=== PATIENT | male | born 1995 | race Caucasian/White ===

== ENCOUNTER 2019-12-06 08:00 | Outpatient (CLI) | payer OTHER ==
--- NOTE | 2019-12-06 14:49 | XRAY Report ---
PROCEDURE: Wrist 3 View LT INDICATIONS: UNSPECIFIED SPRAIN OF LEFT WRIST TECHNIQUE: 3 views of the wrist were acquired. COMPARISON: None FINDINGS: Bones: No fractures or dislocations. No suspicious bony lesions. Incidentally noted ulnar minus taylor iance. Soft tissues: No suspicious soft tissue calcifications. IMPRESSION: Overall, unremarkable examination. If the patient's pain or other symptoms persist, consider further evaluation with MRI. Reviewed by: Daniel Lara MD on 12/06/2019 2:48 PM PDT Approved by: Daniel Lara MD on 12/06/2019 2:48 PM PDT Station ID: [id number]
== END 2019-12-06 23:59 | disposition home or self-care (01) ==
LOC: DI.S 08:00
PROVIDERS: ATTEND Physician Assistant
DX: S63.502A Unspecified sprain of left wrist, initial encounter (principal)

== ENCOUNTER 2020-10-14 13:56 | Outpatient (CLI) | payer BC ==
--- NOTE | 2020-10-14 14:44 | XRAY Report ---
PROCEDURE: Ribs 2 View RT INDICATIONS: R RIB PX POST FALL TECHNIQUE: 3 views of the right ribs were acquired. COMPARISON: None FINDINGS: Surgical changes and devices: None. Bones and chest wall: No fractures or dislocations. No suspicious bony lesions. Overlying soft tis sues appear unremarkable. Lungs and pleura: The visualized lung appears clear. No pleural effusions or pneumothorax are visib le. IMPRESSION: No visualized acute fracture or dislocation. However, occult injury cannot be excluded. Recommend mike rt interval imaging follow-up in 7-10 days as clinically indicated for additional evaluation. Reviewed by: Angela Cueva MD on 10/14/2020 2:43 PM PDT Approved by: Angela Cueva MD on 10/14/2020 2:43 PM PDT Station ID: [id number]
== END 2020-10-14 23:59 | disposition home or self-care (01) ==
LOC: DI.N 13:56
PROVIDERS: ATTEND Physician Assistant Medical
DX: S20.211A Contusion of right front wall of thorax, initial encounter (principal)

== ENCOUNTER 2021-03-30 08:00 | Outpatient (CLI) | payer BC, MEDICAID | END 2021-03-30 23:59 | disposition home or self-care (01) | LOC: LAB.N 08:00 | PROVIDERS: ATTEND Family Medicine | DX: R50.9 Fever, unspecified (principal); Z20.822 Contact with and (suspected) exposure to COVID-19 ==

== ENCOUNTER 2021-04-26 08:00 | Outpatient (CLI) | payer MEDICAID | END 2021-04-26 23:59 | disposition home or self-care (01) | LOC: LAB.N 08:00 | PROVIDERS: ATTEND Nurse Practitioner | DX: J35.1 Hypertrophy of tonsils (principal) | CPT/HCPCS: 87070 ==

== ENCOUNTER 2021-04-26 12:33 | Emergency (ER) | payer MEDICAID ==
[2021-04-26 12:42] VITALS: BP 169/91
== END 2021-04-26 14:40 | disposition left against medical advice (07) ==
LOC: ED 12:33
DX: Z53.21 Procedure and treatment not carried out due to patient leaving prior to being seen by health care provider (principal)
CPT/HCPCS: 87070

== ENCOUNTER 2021-05-08 08:00 | Outpatient (CLI) | payer BC, OTHER ==
--- NOTE | 2021-05-08 12:01 | XRAY Report ---
PROCEDURE: Foot 3 View LT INDICATIONS: CRUSHING INJURY OF LEFT FOOT TECHNIQUE: 3 views of the foot were acquired. COMPARISON: None FINDINGS: Bones: No dano displaced fractures or dislocations. No suspicious bony lesions. Note is made of a partially fused os supratalarae. Soft tissues: No tibiotalar joint effusion. Achilles tendon appears normal. IMPRESSION: No displaced fracture can be seen by plain film. Near the site of clinical concern, there is a partially fused os supratalarae. Reviewed by: Oumar Aaron MD on 05/08/2021 10:59 AM JILLIAN Approved by: Oumar Aaron MD on 05/08/2021 10:59 AM JILLIAN Station ID: [id number]
== END 2021-05-08 23:59 ==
LOC: DI.N 08:00
PROVIDERS: ATTEND Nurse Practitioner
DX: S97.82XA Crushing injury of left foot, initial encounter (principal)

== ENCOUNTER 2021-05-14 13:45 | Outpatient (CLI) | payer BC, OTHER ==
--- NOTE | 2021-05-14 14:13 | XRAY Report ---
PROCEDURE: Foot 3 View LT INDICATIONS: LEFT FOOT PAIN TECHNIQUE: 3 views of the foot were acquired. COMPARISON: May 08, 2021. FINDINGS: FINDINGS: BONES: No acute, displaced fracture or dislocation. Prominent osteophytosis versus an accessory ossic le projecting over the talonavicular articulation. SOFT TISSUES: No focal abnormality. IMPRESSION: 1.No acute osseous abnormality. Reviewed by: Federico Davenport MD on 05/14/2021 2:11 PM PDT Approved by: Federico Davenport MD on 05/14/2021 2:11 PM PDT Station ID: [id number]
== END 2021-05-14 23:59 | disposition home or self-care (01) ==
LOC: DI.WOS 13:45
PROVIDERS: ATTEND Physician Assistant
DX: S97.82XA Crushing injury of left foot, initial encounter (principal)

== ENCOUNTER 2022-01-27 15:29 | Outpatient (CLI) | payer MEDICAID ==
[2022-01-27 16:11] VITALS: BP 130/80
--- NOTE | 2022-01-27 16:11 | SLEEP CARE CONSULTATION ---
Information from patient questionnaire entered by Katya Santiago MA. I have reviewed and concur with the information entered by Katya Santiago MA. This document represents the service I personally performed and the decisions made by me, Jennei Brizuela ARNP. History of Present Illness Service Date and Time: 01/27/2022 1529 Reason for Visit: New patient Chief Complaint: reports: Insomnia, Unrefreshed sleep, Snoring, Excessive daytime sleepiness, Observed pauses in breathing, Fatigue, Frequent awakenings at night Date of Onset: unknown Usual bedtime: ever changing, cannot fall asleep until body is very tired Time it takes to fall asleep: 10min to 3 hrs Snores at night: Yes Observed to quit breathing while asleep: Yes Sleeps alone due to snoring: No Number of times waking at night: 2-3 times Reasons for waking at night: reports: Snoring, Pain, Bathroom, Other (unknown reason; extremely dehydrated from sleeping with mouth open). denies: Choking, Gasping for air Toss, Turn, or Twitch while sleeping: Yes Recalls having dreams: No (rarely) Usually gets out of bed at: changes all the time Feels refreshed in the morning: No Morning headache: Yes (1 time a week) Sleepy or fatigued during the day: Yes Ever fallen asleep while driving: No Takes day naps: Yes (daily when working; 1-2 times wk right now) Dreams during day naps: Yes Prior sleep studies: No Additional HPI information: I had the pleasure of seeing PAYAM BOCANEGRA today regarding the possibility of him having a sleep disorder. His current complaints are excessive daytime sleepiness, fatigue, frequent night awakenings, observed pauses in breathing, snoring and unrefreshed sleep. His biggest concern is his snoring that he has been told he snores loudly. He does not feel he sleeps well and states he lives in a "waking haze". He states he is not employed right now but when working he could not sleep more than 3-4 hours. He has been getting more sleep lately, 10 PM to 5 AM. He states he can only breath through his mouth when sleeping. He will wake up with very dry mouth and lips. He has been using strips on his nose which his girlfriend has said has improved his snoring. He feels that he breathes easier when he uses the nasal strips at night. He will wear them during the day too. 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 Patient is Single and lives in . Have you smoked in the past 12 months: No (smoked marijuana but stopped couple weeks ago) Alcohol use: Yes Alcohol amount and frequency: once a month Caffeine use: Yes Caffeine amount and frequency: 2-3 energy drinks a day Family History Family history of sleep disordered breathing: Yes Family Hx Sleep Apnea: Mother: Snoring, Sleep apnea - Treated Allergies and Home Medications Drug allergies reviewed: Yes (NKDA) Home medication list reviewed: Yes (no daily medications) Review of Systems Weight gain over past 5 years: 100 Cardiovascular: denies: high blood pressure Respiratory: reports: shortness of breath Gastrointestinal: denies: heartburn Urinary: reports: frequency Neurological: denies: headaches Psychiatric: reports: anxiety, depression, mood disorder (undiagnosed) Ear/Nose/Throat: reports: nasal congestion, sinus problems, dry mouth/throat, wisdom teeth removed (1/2 removed). denies: tonsillectomy Musculoskeletal: reports: joint pain, neck pain, other (hypermobility) Immunologic: denies: allergies to food or environment Physical Exam Vital signs obtained and entered by: KATYA Ibarra Blood Pressure: 130/80 Cuff size: long Heart Rate: 103 O2 Saturation: 96 Height: 6 ft 6 in Weight: 320 lb Body Mass Index: 36.9 BMI Classification: Obese Neck circumference: 17 Nostrils: patent to airflow (reduced flow on left) Mouth and throat: narrow oropharynx Soft palate: long Hard palate: normal Uvula: normal Uvula visualization: 50% Mallampati Class II Tongue: enlarged in size with teeth marie on lateral edges Tonsils: 1+ Neck: normal w/o lymphadenopathy or thyromegaly Heart: regular rate and rhythm Lungs: clear bilaterally Impression and Plan 1. Suspected Obstructive Sleep Apnea-Hypopnea Syndrome, as suggested by a history of loud and irregular snoring, observed cessation of breath while asleep, morning headache, frequent awakening during the night, unrefreshed sleep, cognitive impairment, and excessive daytime sleepiness. Narrow oropharynx and obesity are common predisposing factors for obstructive sleep apnea-hypopnea syndrome. I recommend proceeding to polysomnography to confirm the diagnosis and to assess severity. If the patient has significant sleep disordered breathing, a manual CPAP titration study will also be performed to find the optimal treatment pressure. I informed the patient of what the sleep studies involve and after some discussion, obtained agreement to proceed. The pathophysiology of obstructive sleep apnea-hypopnea syndrome was discussed with the patient and health risks of cardiovascular and cerebrovascular disease if not treated. Risks of drowsy driving discussed in detail and patient advised to avoid long distance driving and to pack puller at the first sign of drowsiness. Patient agreed to plan. * Schedule polysomnography * Avoid long distance driving or driving when feeling sleepy. * Avoid alcohol, sedative and muscle relaxant around bedtime. * Attempt to lose weight. * Review instructions provided by trained office staff on how to prepare for the sleep study. * Return for follow-up after sleep study completed. Counseling Topics: Weight loss health impact Visit Type: In Office Time Spent with Patient (minutes): 33 Provider Statement: I spent 100% of the Face to Face Visit with the patient with greater than 50% spent counseling the patient and coordination of care.
== END 2022-01-27 15:30 | disposition home or self-care (01) ==
LOC: SC 15:29
PROVIDERS: ATTEND Nurse Practitioner Family
DX: G47.10 Hypersomnia, unspecified (principal); R53.83 Other fatigue; G47.8 Other sleep disorders; R51.9 Headache, unspecified; R06.83 Snoring; R06.81 Apnea, not elsewhere classified; E66.9 Obesity, unspecified; Z68.36 Body mass index [BMI] 36.0-36.9, adult
CPT/HCPCS: 99203; 99212

== ENCOUNTER 2022-04-18 19:28 | Outpatient (CLI) | payer MEDICAID | END 2022-04-18 19:29 | disposition home or self-care (01) | LOC: SC 19:28 | PROVIDERS: ATTEND Nurse Practitioner Family | DX: G47.10 Hypersomnia, unspecified (principal); R53.83 Other fatigue; G47.8 Other sleep disorders; R51.9 Headache, unspecified; E66.9 Obesity, unspecified; R06.83 Snoring; R06.81 Apnea, not elsewhere classified; Z68.37 Body mass index [BMI] 37.0-37.9, adult | CPT/HCPCS: 95810 ==

== ENCOUNTER 2022-05-02 11:36 | Outpatient (CLI) | payer MEDICAID ==
[2022-05-02 16:43] VITALS: BP 124/70
--- NOTE | 2022-05-02 16:43 | SLEEP CARE CONSULTATION ---
Information from patient questionnaire entered by Marielle Harrington. I have reviewed and concur with the information entered by Marielle Harrington. This document represents the service I personally performed and the decisions made by me, Savanna James MD, [facility]. History of Present Illness Service Date and Time: 05/02/2022 1136 Initial [place] Sleepiness Scale score: 13 (01/2022) Current [place] Sleepiness Scale score: 2 (05/02/22) Additional HPI information: Mr. Salinas returned for follow up of the sleep study he had on 04/18/22. The polysomnography showed that the patient had slightly reduced sleep efficiency sleep onset insomnia. The sleep architecture was normal. Respiratory monitoring showed no significant sleep disordered breathing (AHI = 2.9) or hypoxia (aneta oxygen saturation of 83%). The few respiratory events occurred almost exclusively during supine sleep (supine AHI = 5.4; non-supine = 1.36). Snore was light to moderate in intensity. There was no significant periodic leg movement of sleep. Cardiac rhythm was normal sinus rhythm without significant arrhythmia. No abnormal behavior (parasomnia) observed during the night. The patient was informed of these findings. I explained to him that the sleep study did not show significant sleep disrupting conditions. The patient complains of broken sleep at home. He reports going to sleep right after he comes home at 5 pm, then wake up during the night for several hours then sleeping again for another 4 hours before finally waking up to go to work at 6 am. Sleep Study - Results Type of Sleep Study: Polysomnography (COMPLETED 04/18/22) Prior sleep studies: No Allergies and Home Medications Drug allergies reviewed: Yes Home medication list reviewed: Yes Allergy and home medication list: Allergies No Known Drug Allergies Allergy (Verified 04/26/21 12:42) Review of Systems Review of systems same as previous: Yes Physical Exam Vital signs obtained and entered by: MARIELLE Plascencia MA Blood Pressure: 124/70 (LEFT ARM) Cuff size: regular Heart Rate: 78 O2 Saturation: 97 Height: 6 ft 6 in Weight: 321 lb Body Mass Index: 37.0 BMI Classification: Obese Impression and Plan IMPRESSION: 1. Primary Snore (ICD-10 R06.83), light to moderate, but no significant sleep disordered breathing except when the patient slept supine. The patient is recommended to avoid sleeping supine. His sleep maintenance problem is due to his going to sleep right away after coming home from work around 5 6 pm. He was advised to not do that if he wants his night sleep to be continuous. PLAN: 1. Avoid sleeping supine. 2. Return for a follow up on as needed basis. Counseling Topics: Sleeping position Follow up with Sleep Care in: as needed Visit Type: In Office Time Spent with Patient (minutes): 15 Provider Statement: I spent 100% of the Face to Face Visit with the patient with greater than 50% spent counseling the patient and coordination of care.
== END 2022-05-02 11:37 | disposition home or self-care (01) ==
LOC: SC 11:36
PROVIDERS: ATTEND Internal Medicine Pulmonary Disease
DX: R06.83 Snoring (principal); E66.9 Obesity, unspecified; Z68.37 Body mass index [BMI] 37.0-37.9, adult
CPT/HCPCS: 99212

== ENCOUNTER 2022-09-13 22:26 | Emergency (ER) | payer MEDICAID ==
--- NOTE | 2022-09-13 23:09 | ED Physician Documentation ---
History of Present Illness - Stated complaint Stated Complaint: BACK PX - Chief complaint Chief Complaint: Back Pain - History obtained from History obtained from: Patient - Additonal information Additional information: The patient comes to the emergency department chief complaint of pain in his right upper back after twisting and feeling a "pop". He states that he has noticed that whenever he waits the area or positions it in certain ways, or if he takes deep breath, that he gets a sharp pain between his scapula and his spine. The patient has a history of Clifford-Danlos syndrome and his significant other was concerned because of this. The patient denies any shortness of breath per se. He was not injured in any other way. No paresthesias or other neurologic symptoms. PD PAST MEDICAL HISTORY - Present Medications Home Medications: Ambulatory Orders Medication Instructions Recorded Confirmed Cyclobenzaprine [Flexeril] 10 mg PO TID PRN #20 tablet 09/13/22 - Allergies Allergies/Adverse Reactions: Allergies Allergy/AdvReac Type Severity Reaction Status Date / Time No Known Drug Allergies Allergy Verified 05/02/22 15:07 PD ED PE NORMAL - Vitals Vital signs reviewed: Yes - General General: Alert and oriented X 3, No acute distress, Well developed/nourished - HEENT HEENT: Atraumatic, PERRL, EOMI, Moist mucous membranes - Neck Neck: Supple, no meningeal sign, No bony TTP - Cardiac Cardiac: RRR, No murmur - Respiratory Respiratory: No respiratory distress, Clear bilaterally - Back Back: No spinal TTP, Other (Tenderness palpation over right posterior rib cage around the T6-7 level. No step-off or crepitus.) - Derm Derm: Normal color, Warm and dry, No rash - Extremities Extremities: No deformity - Neuro Neuro: Alert and oriented X 3 - Psych Psych: Normal mood, Normal affect Results - Vitals Vitals: Vital Signs - 24 hr 09/13/22 09/13/22 22:30 23:45 Temperature 37.1 C 37.0 C Heart Rate 81 80 Respiratory 16 16 Rate Blood Pressure 143/106 H 130/90 H O2 Saturation 99 100 Oxygen O2 Source Room air - Rads (name of study) Right ribs and chest x-ray series Relevant Findings:: Final report received, See rad report (Negative) PD Medical Decision Making - ED course Complexity details: reviewed results, re-evaluated patient, considered differential, d/w patient ED course: The patient was worked up with a right rib and chest x-ray series. He declined symptomatic management initially, stating that he had taken ibuprofen, Tylenol, and marijuana at home which did not really help, but that it also was not really painful unless he moved in certain ways. X-ray series was unremarkable. The patient did state he would like a muscle relaxer to try at home and so prescription for Flexeril has been sent to the [facility] pharmacy for him. I have given him a work note for tomorrow. We have discussed the usual indications for follow-up and return. Departure - Departure Disposition: Home, Self Care Clinical Impression: Back pain Qualifiers: Back pain location: thoracic back pain Chronicity: acute Back pain laterality: right Qualified Code(s): M54.6 - Pain in thoracic spine Condition: Stable Instructions: ED Neck Back Pain General Prescriptions: Cyclobenzaprine [Flexeril] 10 mg PO TID PRN #20 tablet PRN Reason: Spasms Comments: Your x-ray series looks good. There is no evidence of any injury to the bones, either by fracture or dislocation. Most likely, you have sustained a soft tissue tear of the tissues that attach to your rib, whether muscular or tendinous. This will heal up on its own, given time. You may use ice, heat, stretching, massage, ibuprofen, Tylenol, or the muscle relaxer that has been prescribed. The prescription for this has been electronically transmitted to the [facility] pharmacy in [place]. A work note has been provided for tomorrow for you. Forms: PCP List, Activity restrictions Discharge Date/Time: 09/13/22 23:45
[2022-09-13 23:48] VITALS: BP 130/90
--- NOTE | 2022-09-14 01:30 | XRAY Report ---
PROCEDURE: Ribs w/PA Chest RT INDICATIONS: pop and pain in posterior R ribs TECHNIQUE: 3 views of the right ribs were acquired, along with a single view chest. COMPARISON: 10/14/2020. FINDINGS: Surgical changes and devices: None. Bones and chest wall: No displaced rib fracture identified. No suspicious bony lesions. Overlying soft tissues appear unremarkable. Lungs and pleura: No pleural effusions or pneumothorax. Lungs appear clear. Mediastinum: Mediastinal contours appear normal. Heart size is normal. IMPRESSION: No displaced rib fracture or pneumothorax. Reviewed by: William Welch MD on 09/14/2022 1:29 AM PDT Approved by: William Welch MD on 09/14/2022 1:29 AM PDT Station ID: [id number]
== END 2022-09-13 23:45 | disposition home or self-care (01) ==
LOC: ED 22:26
DX: M54.6 Pain in thoracic spine (principal)
CPT/HCPCS: 99283

== ENCOUNTER 2022-12-06 15:38 | Outpatient (CLI) | payer OTHER, MEDICAID ==
[2022-12-06 17:52] LABS: BASOPHILS % (AUTO) 0.7 %; EOSINOPHILS # (AUTO) 0.1 10^3/uL (0.0-0.7); EOSINOPHILS % (AUTO) 1.5 %; HCT - HEMATOCRIT 43.8 % (42.0-52.0); HGB - HEMOGLOBIN 14.3 g/dL (14.0-18.0); LYMPHOCYTES # (AUTO) 1.8 10^3/uL (1.5-3.5); LYMPHOCYTES % (AUTO) 34.1 %; MEAN CORPUSCULAR HEMOGLOBIN 29.4 pg (27.0-31.0); MEAN CORPUSCULAR HGB CONC 32.6 g/dL (32.0-36.0); MEAN CORPUSCULAR VOLUME 89.9 fL (80.0-94.0); MEAN PLATELET VOLUME 9.6 fL (7.4-11.4); MONOCYTES # (AUTO) 0.6 10^3/uL (0.0-1.0); MONOCYTES % (AUTO) 10.7 %; NEUTROPHILS # (AUTO) 2.8 10^3/uL (1.5-6.6); NEUTROPHILS % (AUTO) 52.8 %; PLT - PLATELET COUNT 227 10^3/uL (130-450); RED BLOOD COUNT 4.87 10^6/uL (4.70-6.10); RED CELL DISTRIBUTION WIDTH 13.4 % (12.0-15.0); WHITE BLOOD COUNT 5.3 x10^3/uL (4.8-10.8)
[2022-12-06 18:01] LABS: ALBUMIN 4.3 g/dL (3.2-5.5); ALBUMIN/GLOBULIN RATIO 1.8 (1.0-2.2); ALKALINE PHOSPHATASE 72 IU/L (42-121); ALT ALANINE AMINOTRANSFERASE 15 IU/L (10-60); AST ASPARTATE AMINOTRANSFERASE 16 IU/L (10-42); BILIRUBIN,TOTAL 0.7 mg/dL (0.2-1.0); BUN - BLOOD UREA NITROGEN 13 mg/dL (6-20); CALCIUM 9.1 mg/dL (8.5-10.3); CARBON DIOXIDE - CO2 32 mmol/L (21-32); CHLORIDE 105 mmol/L (101-111); CHOL/HDL RATIO 2.8 (<5.0); CHOLESTEROL 143 mg/dL; CREATININE 0.8 mg/dL (0.6-1.3); GFR - MDRD 117 (>89); GLUCOSE 93 mg/dL (74-104); HDL CHOLESTEROL 52 mg/dL; LDL CHOLESTEROL,CALCULATED 77 mg/dL; LDL/HDL RATIO 1.5 (<3.6); POTASSIUM 4.1 mmol/L (3.5-4.5); SODIUM 138 mmol/L (135-145); TOTAL PROTEIN 6.7 g/dL (6.4-8.9); TRIGLYCERIDES 72 mg/dL (48-352); VLDL CHOLESTEROL 14 mg/dL
[2022-12-06 18:14] LABS: THYROID STIMULATING HORMONE 1.94 uIU/mL (0.34-5.60)
[2022-12-06 20:33] LABS: ESTIMATED AVERAGE GLUCOSE 100 mg/dL (70-100); HEMOGLOBIN A1c% 5.1 % (4.27-6.07)
== END 2022-12-06 15:39 | disposition home or self-care (01) ==
LOC: LAB.N 15:38
PROVIDERS: ATTEND Nurse Practitioner Family
DX: Q79.69 Other Ehlers-Danlos syndromes (principal); R41.840 Attention and concentration deficit; R03.0 Elevated blood-pressure reading, without diagnosis of hypertension; E66.9 Obesity, unspecified
CPT/HCPCS: 36415; 80053; 80061; 83036; 83721; 84443; 85025

== ENCOUNTER 2023-08-01 16:14 | Outpatient (CLI) | payer OTHER ==
[2023-08-01 21:47] LABS: ALBUMIN 4.3 g/dL (3.2-5.5); ALBUMIN/GLOBULIN RATIO 1.4 (1.0-2.2); BILIRUBIN,TOTAL 0.5 mg/dL (0.2-1.0); CALCIUM 9.4 mg/dL (8.5-10.3); CREATININE 0.9 mg/dL (0.6-1.3); POTASSIUM 3.9 mmol/L (3.5-4.5); TOTAL PROTEIN 7.3 g/dL (6.4-8.9)
== END 2023-08-01 16:15 | disposition home or self-care (01) ==
LOC: LAB.N 16:14
PROVIDERS: ATTEND Family Medicine
DX: F64.9 Gender identity disorder, unspecified (principal)
CPT/HCPCS: 36415; 80053

== ENCOUNTER 2023-09-16 13:22 | Outpatient (CLI) | payer OTHER ==
[2023-09-16 13:48] LABS: BUN - BLOOD UREA NITROGEN 12 mg/dL (6-20); CALCIUM 9.4 mg/dL (8.5-10.3); CARBON DIOXIDE - CO2 30 mmol/L (21-32); CHLORIDE 102 mmol/L (101-111); CHOL/HDL RATIO 2.9 (<5.0); CHOLESTEROL 148 mg/dL; CREATININE 0.9 mg/dL (0.6-1.3); GFR - MDRD 101 (>89); GLUCOSE 100 mg/dL (74-104); HDL CHOLESTEROL 51 mg/dL; LDL CHOLESTEROL,CALCULATED 84 mg/dL; LDL/HDL RATIO 1.6 (<3.6); SODIUM 136 mmol/L (135-145); TRIGLYCERIDES 63 mg/dL; VLDL CHOLESTEROL 13 mg/dL
== END 2023-09-16 13:23 | disposition home or self-care (01) ==
LOC: LAB 13:22
PROVIDERS: ATTEND Family Medicine
DX: F64.9 Gender identity disorder, unspecified (principal); E66.9 Obesity, unspecified
CPT/HCPCS: 36415; 80048; 80061; 82670; 83721; 84403

== ENCOUNTER 2023-10-30 08:00 | Outpatient (CLI) | payer OTHER | END 2023-10-30 23:59 | disposition home or self-care (01) | LOC: LAB.N 08:00 | PROVIDERS: ATTEND Registered Nurse | DX: J02.9 Acute pharyngitis, unspecified (principal) | CPT/HCPCS: 87070 ==